=== PATIENT | male | born 1970 | race Caucasian/White ===

== ENCOUNTER → 2018-02-08 09:14 | Outpatient (CLI) | payer MEDICAID, SELFPAY ==
[2018-02-08 09:05] VITALS: BMI 22.9
--- NOTE | 2018-02-08 09:16 | RAD_ITS ---
STUDY: X-RAY - LEFT SHOULDER REASON FOR EXAM: Male, 47 years old. Shoulder pain. TECHNIQUE: 3 view(s) of the shoulder. COMPARISON: None. FINDINGS: Normal glenohumeral articulation. Normal acromioclavicular joint. Normal acromion. Normal humeral head and visualized proximal humerus. The soft tissue structures are unremarkable. Normal visualized pulmonary apex. RAD/Shoulder min 2 Views IMPRESSION: Normal x-ray examination of the shoulder. Electronically Signed: Fabian Siddiqi MD at 17:58 EST , Service support ,
== END ==
PROVIDERS: Family Provider Family Medicine; PCP Family Medicine; Referring Provider Orthopaedic Surgery; Visit Provider Orthopaedic Surgery
DX: M25.512 Pain in left shoulder (principal)
CPT/HCPCS: 73030

== ENCOUNTER 2018-03-18 09:00 | Outpatient (RCR) | payer OTHER, MEDICAID, SELFPAY ==
[2018-02-08 09:05] VITALS: BMI 22.9
--- NOTE | 2018-03-07 11:40 | HP.PTEVAL_ITS ---
Patient's Visit Information MEG VILLAVICENCIO is a 47 year old M referred to Physical Therapy by Sabrina Mcbride DO with a diagnosis of Rotator Cuff tear, subacromial impingment of L shoulder. Date of Evaluation: 02/18/18 Physical Therapist: Celso Devi DPT - Visit Plan Frequency: 1x/Week Duration: 4-6 Weeks Plan: Start with AAROM as tolerated. Add in RTC stability/strengthening exercises as tolerated. Do not push through pain, avoid crepitus movements. - Subjective Findings: Pt. is here today for his initial evaluation with diagnosis of RTC tear and subacromial impingment of L shoulder. Pt. reports having inreased pain for several years, but has become worse recently. 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 Pt. reports haing pain in L shoulder that occassionally radiates into his elbow and even hand. Pt reports increased difficulty with sleeping and performing activities with his L arm. He is R hand dominant. He did recieve an injection of kenalog last week and reports having good relief, but is not all the way better. Pt. denies N/T in either UE. Pt. reports being able to complete most activities, but does have pain with them. Pt. has had an xray that shows normal L shoulder joint. Pt. is hopeful to decrease symptoms to complete all recreational activities without limitations. - Pain L shoulder Pain Intensity (Out of 10): 1 Pain Intensity Range: 1, 8 - Objective POSTURE: Pt. has normal posture in stnace. Pt. does have rounded shoulders bilaterally and FH posture. PALPATION: Pt. has tenderness and subacromial space, more anterior than posterior. Pt. has no scapular pain. He does have deltoid pain, but not to touch. NEURO: all intact without issues. Pt. has n ormal DTR of BLEs. No sign of upper limb tension. ROM: LUE- wrist/elbow normal. Shoulder- flexion 170deg mild increase NW, abduction 170deg mild increase NW, functional ER C4 mild increase nW, functional IR L1 NE.'. MMT: RUE- 5/5 throughout; LUE- wrist 5/5; elbow 5/5; shoulder- flexion 4/5, abd 4/5, ext 4/5, IR 5/5, ext 5/5. - Special Tests L Shoulder Lift Off Test - Subscapular Tear: Negative L Shoulder Drop Sign - IS Test: Negative L Shoulder Empty Can - SS: Negative L Shoulder Neer - Impingement: Positive L Shoulder Murray Margarito - Impingement: Positive L Shoulder Biceps Load Test - Labrum: Negative L Shoulder Yeargasons - SLAP: Negative - Goals Goal 1:: Pt. to be I with HEP. Goal Time Frame: 4-6 Weeks Goal 2:: Pt. to have full ROM of L shoulder without increase in symptoms. Goal Time Frame: 4-6 Weeks Goal 3:: Pt. to have increased strength of L shoulder by 1/2 grade of all effected musculature. Goal Time Frame: 4-6 Weeks Goal 4:: Pt. to have no pain with all recreational and work related activities. Goal Time Frame: 4-6 Weeks - Rehabilitation Potential Physical Therapy Diagnosis: Pt. has signs and symptoms of R subacromial impingem ent. Pt. reports being significantly better after having injection last week. Be does have increased strength or tolerance to movements this date. I plan to attempt to increase strength as tolerated. He does have crepitus in his shoulder with reaching over head, painful with this as well. Pt. would benefit from PT to increase tolerance throughout ROM of L shoulder and to increase strength/stability of his L shoulder. Rehabilitation Potential: Good - Anticipated Interventions Patient/Client Instruction: Educate patient on: Condition, Plan of Care, Risk Factors, Benefits of Fitness Program For the Purpose of:: To foster healthy habits, To improve decision making, To facilitate caregiver knowledge, To improve self management, To prevent re- injury, To improve ability to perform tasks related to life management, To improve tolerance to ADL's Therapeutic Exercise to Include: Strength training, Power training, Endurance training, Postural training, Flexibilty training, Passive ROM, Active ROM, Scapular Strength/Stabilization For the Purpose of:: To decrease pain, To decrease swelling/inflammation, To increase ROM, To improve nutrient delivery to tissue, To increase oxygenation perfusion, To improve muscle performance and motor function, To improve health of tissue, To decrease soft tissue restriction, To increase flexibility/ROM Manual Therapy Techniques to Include: Mobilization, Passive ROM, Functional dry needling, Soft tissue mobilization For the Purpose of:: To decrease pain, To decrease swelling/inflammation, To increase ROM IF ES: Yes Cryotherapy (ice pack, ice massage): Yes Thermo therapy (hot pack): Yes Ultrasound (thermal/non thermal): Yes For the Purpose of:: To decrease pain, To decrease swelling/inflammation, To increase ROM Thank you for the opportunity to evaluate your patient. For Medicare and Medicare HMO plans, please review the plan of care and approve it. It will need to be FAXED BACK to us at [phone] for Medicare purposes. For Medicare only, by signing this I certify the plan of care. Please let me know if there are questions or concerns regarding this plan of care. Physician Signature: Date:
--- NOTE | 2018-03-18 09:18 | HP.PTDCSUM ---
HP - PT D/C Summary It has been my pleasure to treat MEG VILLAVICENCIO under orders from Sabrina Mcbride DO, for the diagnosis of Rotator Cuff tear, subacromial impingment of L shoulder for a total of 4 visit(s). Discharge Date: 03/18/18 Please see the following information for a summary of their discharge status. - Subjective Subjective: Pt. is here today with reports that his symptoms have returned back to where they were prior to injection. Pt. reports driving and doing a full revolution with the steering wheel and having intense pain since. Pt. still reports minimal pain with sleeping, but has increased pain with any attempts of raising his shoulder. - Pain L shoulder Pain Intensity (Out of 10): 4 - Overall Improvement % Improvement: 25 - Objective Objective/Function: AROM: L shoulder- flexion 98deg, abd 78deg, functional ER external auditory meatus, functional IR PSIS on L side. PROM- full without increase in symptoms. MMT: Pt. has 4+/5 throuhgout except, 4-/5 with ER. Pt. has no drop sign, but has increased pain with any active testing of his supraspinatus muscle. Pt. is limited with his ability to complete work duties. Pt. reports have to brace L arm against body for relief. - Goals Goal 1:: Pt. to be I with HEP. Goal Progress: Goal Met Goal 2:: Pt. to have full ROM of L shoulder without increase in symptoms. Goal Progress: Not Progressing Goal 3:: Pt. to have increased strength of L shoulder by 1/2 grade of all effected musculature. Goal Progress: Not Progressing Goal 4:: Pt. to have no pain with all recreational and work related activities. Goal Progress: Not Progressing - Plan Plan: I am recommending patient follow up with physician with possible need for more imaging in order to determine if cuff tear has occured. Pt. cami rodriguez DC to Physician at this point in time. - D/C Information Discharge Comments: Pt. was treated for her RTC tear vs impingment. Pt. had initial good success with his injection, but after ~2.5 weeks symptoms resumed. Pt. was treated with ROM and RTC stability exericses. Pt. is now having increased pain again with ER and all attempts of over head movements. At this point in time I would recommend that the patient return to physician to determine if further imaging is needed. If there are questions or concerns regarding this patient's physical therapy, please feel free to call me at [phone]. Thank you for the referral of this patient. Sincerely, Celso Devi DPT
== END 2018-03-18 19:00 | disposition home or self-care (01) ==
LOC: PT 09:00
PROVIDERS: Family Provider Family Medicine; PCP Family Medicine; Referring Provider Orthopaedic Surgery; Visit Provider Orthopaedic Surgery
DX: M75.102 Unspecified rotator cuff tear or rupture of left shoulder, not specified as traumatic (principal); M25.812 Other specified joint disorders, left shoulder
CPT/HCPCS: 97110; 97161; 97530

== ENCOUNTER → 2018-04-03 06:23 | Outpatient (CLI) | payer OTHER, MEDICAID, SELFPAY ==
[2018-03-19 10:22] VITALS: BMI 22.9
--- NOTE | 2018-04-03 06:15 | RAD_ITS ---
HISTORY: mri clearance COMPARISON: None FINDINGS: XR Orbits Clearance FB: 2 views of the orbits obtained. No radiopaque foreign body. Left maxillary sinus circumferential mucosal thickening. Radiopaque dental device. RAD/Orbits for Foreign Body IMPRESSION: 1. No orbital foreign body. 2. Radiopaque dental device. 3. Left maxillary sinusitis. at 0718 Reported and signed by: Alfred Eldridge MD Electronically Signed: Alfred Eldridge, at 7:17 EST Tel , Service support ,
--- NOTE | 2018-04-03 06:26 | MRI_ITS ---
STUDY: MRI LEFT SHOULDER REASON FOR EXAM: Left shoulder pain for 4-6 months, no specific injury. TECHNIQUE: Standardized fat and water weighted pulse sequences were obtained in all 3 orthogonal planes. COMPARISON: Radiographs 02/08/2018. FINDINGS: There is supraspinatus tendinosis and a full-thickness tear of the distal supraspinatus tendon (T2 coronal images 9-12; T2 axial image 7) measuring 0.5 x 1.2 cm (length x width). Normal infraspinatus tendon. Normal subscapularis tendon. Normal teres minor tendon. Normal supraspinatus muscle. Normal infraspinatus muscle. Normal subscapularis muscle. Normal teres minor muscle. Normal glenohumeral articulation. Normal humeral head and visualized proximal humerus. Normal biceps labral complex. Normal intracapsular long biceps tendon. Normal labrum. Normal capsulo- ligamentous complex. Normal rotator interval. Normal acromioclavicular articulation. There is an os acromiale (T2 axial image 4). There is a Type II morphology (curved), with a posterior downsloping orientation. There is no subacromial-subdeltoid bursal fluid. There is mild thickening of the coracoacromial ligament (T2 sagittal image 15). Normal deltoid muscle. Normal trapezius muscle. MRI/Upper Ext Joint Only(Routine) IMPRESSION: Full-thickness tear and tendinosis of the supraspinatus tendon. Os acromiale. Mild thickening of the coracoacromial ligament. Electronically Signed: Stephen Fam MD at 10:17 EST Tel , Service support ,
== END ==
PROVIDERS: Family Provider Internal Medicine; PCP Internal Medicine; Referring Provider Orthopaedic Surgery; Visit Provider Orthopaedic Surgery
DX: M75.102 Unspecified rotator cuff tear or rupture of left shoulder, not specified as traumatic (principal)
CPT/HCPCS: 70030; 73221

== ENCOUNTER 2018-04-16 08:20 | Day surgery (SDC) | payer MEDICAID, SELFPAY ==
[2018-04-11 08:13] VITALS: BMI 22.9
--- NOTE | 2018-04-15 13:55 | EKG12_ITS ---
Test Reason : PRE-OP Blood Pressure : / mmHG Vent. Rate : 074 BPM Atrial Rate : 074 BPM P-R Int : 124 ms QRS Dur : 082 ms QT Int : 368 ms P-R-T Axes : 015 034 047 degrees QTc Int : 408 ms Normal sinus rhythm Normal ECG Confirmed by ALDO PARRA, PATRIC ([id number]), food expeditor ROSETTA VILLAVICENCIO ([id number]) on 04/16/2018 12:56:54 PM Referred By: Narinder Harry Confirmed By:PATRIC CARLSON MD
[2018-04-15 15:43] LABS: Hematocrit 46.8 % (40-54); Hemoglobin 15.6 g/dl (13.0-16.5); Mean Corp Hgb Conc 33.3 g/gl (32-36); Mean Corpuscular Volume 98.9 fL (80-94); Mean Platelet Vol. 10.8 fl (6.2-12.0); Platelet Count 344 K/mm3 (150-450); RBC Distribution Width CV 13.8 % (11.6-14.6); RBC Distribution Width SD 49.6 fl (35.1-43.9); Red Blood Count 4.73 M/mm3 (4.6-6.2)
[2018-04-15 15:52] LABS: Scan Indicated on CBC? Y/N NO
[2018-04-15 16:07] LABS: AST(SGOT) 38 U/L (15-37); Alanine Aminotransfer ALT/SGPT 33 U/L (16-61); Albumin, Serum 4.1 g/dL (3.2-5.0); Alkaline Phosphatase 56 U/L (45-117); Anion Gap 10 (5-15); BUN 8 mg/dL (7-18); BUN/Creat Ratio 9.1 RATIO (10-20); Bilirubin, Direct 0.07 mg/dL (0.00-0.30); Calcium,Total 8.9 mg/dL (8.5-10.1); Chloride 104 mmol/L (98-107); Creatinine, Serum 0.88 mg/dL (0.70-1.30); EST Glomerular Filtration Rate 98 mL/min (>60); Est Glom Filt Rate - Afr Amer 118 mL/min (>60); Globulin 3.7 g/dL (2.2-4.2); Glucose 80 mg/dL (74-106); Protein, Total 7.8 g/dL (6.4-8.2); Sodium Level 140 mmol/L (136-145)
[2018-04-15 16:09] LABS: Partial Thromboplast Time 28.1 Seconds (24.1-36.2)
[2018-04-16] VITALS (8 sets, daily range): BP systolic 108–132; BP diastolic 75–88; PULSE 49–88; RESP 16–18; TEMP 35.7–36.9; O2SAT 95–97; BMI 21.7
[2018-04-16] MEDS: Cefazolin 2 GM in 0.9% Normal Saline 100 ML IV (10:40)
[2018-04-16] MEDS: Bupiv/Epi 0.5% Mpf 30 ML Vial (11:18)
[2018-04-16] MEDS: Bupivacaine Mpf 0.5% 30 ML VIAL (12:14)
--- NOTE | 2018-04-16 12:26 | PCM.DC.ORTHO ---
Discharge Activity: - - Leave the dressing on and intact for 48 hours. Then may remove and shower with warm water and antibacterial soap. But do not submerge in tub for 3 weeks. May remove sling for elbow range of motion and pendulum exercises only then put sling back on. No active shoulder range of motion. Do not lift push or pull at all with operative extremity. Encourage finger and wrist range of motion. If any concerns call Dr. Harry's office. Call your doctor if you observe: Shortness of breath, Chest pain Allergies/Adverse Reactions: Allergies No Known Allergies Allergy (Verified 04/16/18 08:38) Medications to take at Discharge NK 03/19/18 Orders to be completed after discharge: 12 Lead EKG [CVS] Time Frame: 04/15/18, Facility: [facility], Location: Cardiovascular Services Partial Thromboplast Time Time Frame: 04/15/18, Location: Laboratory Basic Metabolic Profile (BMP) Time Frame: 04/15/18, Location: Laboratory CBC-Complete Blood Cnt No Diff Time Frame: 04/15/18, Location: Laboratory Liver Profile Time Frame: 04/15/18, Location: Laboratory Prothrombin Time w/INR Time Frame: 04/15/18, Location: Laboratory Primary Care Physician: Vlad Martin MD [Primary Care Provider] - Test Results: Test results from this visit will be discussed in further detail at your follow-up appointment, if applicable. Please Follow Up With: Narinder Harry DO - 2 weeks
--- NOTE | 2018-04-16 12:31 | DCINST_ITS ---
Discharge Activity: - - Leave the dressing on and intact for 48 hours. Then may remove and shower with warm water and antibacterial soap. But do not submerge in tub for 3 weeks. May remove sling for elbow range of motion and pendulum exercises only then put sling back on. No active shoulder range of motion. Do not lift push or pull at all with operative extremity. Encourage finger and wrist range of motion. If any concerns call Dr. Harry's office. Call your doctor if you observe: Shortness of breath, Chest pain Allergies/Adverse Reactions: Allergies No Known Allergies Allergy (Verified 04/16/18 08:38) Medications to take at Discharge NK 03/19/18 Orders to be completed after discharge: 12 Lead EKG [CVS] Time Frame: 04/15/18, Facility: [facility], Location: Cardiovascular Services Partial Thromboplast Time Time Frame: 04/15/18, Location: Laboratory Basic Metabolic Profile (BMP) Time Frame: 04/15/18, Location: Laboratory CBC-Complete Blood Cnt No Diff Time Frame: 04/15/18, Location: Laboratory Liver Profile Time Frame: 04/15/18, Location: Laboratory Prothrombin Time w/INR Time Frame: 04/15/18, Location: Laboratory Primary Care Physician: Vlad Martin MD [Primary Care Provider] - Test Results: Test results from this visit will be discussed in further detail at your follow- up appointment, if applicable. Please Follow Up With: Narinder Harry DO - 2 weeks
--- NOTE | 2018-04-16 12:47 | OP.PCM_ITS ---
Report of Operation Date of Procedure: 04/16/18 Description of Surgical Findings:: Preoperative diagnosis: Left rotator cuff tear supraspinatus Postoperative diagnosis: Full-thickness supraspinatus and infraspinatus rotator cuff tear Procedure: Arthroscopic rotator cuff repair Implants: Arthrex the bridge 4 anchor pair Anesthesia: General with interscalane block EBL: 25 cc Complications none Indication for procedure: This is a 47-year-old male patient has had ongoing weakness and shoulder pain in his left shoulder he was treated conservatively as there was no initial injury however he failed conservative treatment did have an MRI with evidence of full-thickness supraspinatus rotator cuff tear just immed iately prior to surgery patient had a fall and had increased pain and inability to lift the arm after this fall he made this aware to me just immediate [place] preoperatively in the holding area. Risks benefits and alternatives of the procedure were reviewed including risk of bleeding infection nerve artery tissue damage need for further surgery continued pain postoperative stiffness and need for postoperative physical therapy and continued pain. Procedure: Patient was met in the preoperative holding area the operative extremity was identified by both the patient and the physician and was marked. Patient was met by anesthesia and brought back to the operating room on a wheeled cart. Patient was transferred to the operating table in the supine position. Anesthesia was started. Patient was then positioned in the beach chair configuration. Bony prominences were well-padded. The patient was prepped and draped in the usual sterile fashion. A timeout was called to ensure the proper patient procedure and extremity were being contemplated. Anatomic landmarks were palpated and marked with a marking pen. A 0.25% Marcaine with epinephrine was injected into the planned portal sites. An 11 blade scalpel was used to make a stab incision in the posterior lateral portal. Arthroscope was inserted into the glenohumeral space with ease. Inflow and outflow tubes were attached and arthroscopic visualization began. An anterior portal was established with an 18-gauge spinal needle. There was no significant cartilage pathology there was slight fraying of the superior border of the subscapularis mild synovitis of the biceps tendon. the rotator cuff was evaluated and was found to have a full-thickness tear of both supraspinatus and the infraspinatus. The axillary pouch was investigated and was free of loose bodies. The subscapularis was intact. The arthroscope was then repositioned into the subacromial space and a lateral portal was established. A subacromial decompression with an ArthroCare wand and shaver was performed. There was noted to be anterior spurring of the acromion which was burred to create a flat surface. Performing an anterior acromioplasty. The bursal side of the rotator cuff was evaluated . Using standard speed bridge fashion 2 medial anchors were placed wedges of the fiber tapes were cut and for individual passes of the rotator cuff were performed then in standard fashion the posterior limb of each of these anchors were secured to a posterior lateral anchor and were tapped into place under tension this was repeated for the anterior 2 limbs. Excellent repair was achieved. The wound was thoroughly irrigated through the scope followed by a subacromial injection with 4 mg of morphine and 8 cc of 0.5% Marcaine plain. Suture portals were closed with 3-0 nylon arthroscopic stitches followed by Xeroform 4 x 4 ABD and a Ioban dressing. A abduction sling and pillow was placed. Anesthesia was reversed and patient tolerated the procedure well was and was transferred to the PACU all counts were correct patient will follow-up in the office in 2 weeks . Patient may begin active elbow and wrist range of motion and pendulums of the shoulder but no active shoulder motion, dressing is to be left on for 48 hours before being changed daily after showering Type of Anesthesia:: Block,Regional - Interscalene
--- NOTE | 2018-04-16 12:54 | EKG12_ITS ---
Test Reason : Blood Pressure : / mmHG Vent. Rate : 054 BPM Atrial Rate : 054 BPM P-R Int : 124 ms QRS Dur : 080 ms QT Int : 452 ms P-R-T Axes : 048 025 043 degrees QTc Int : 428 ms Sinus bradycardia Septal infarct , age undetermined Possible early repolarization abnormality vs ischemia Abnormal ECG When compared with ECG of 15-APR-2018 14:02, No significant change was found Confirmed by FANNY LOZANO ([id number]), editor newspaper ROSETTA VILLAVICENCIO ([id number]) on 04/19/2018 1:41:22 PM Referred By: Narinder Harry Confirmed By:FANNY LOZANO
== END 2018-04-16 14:45 | disposition home or self-care (01) ==
LOC: SDC 08:22 → AC 08:23
PROVIDERS: Family Provider Internal Medicine; PCP Internal Medicine; Referring Provider Orthopaedic Surgery; Visit Provider Orthopaedic Surgery
PROC: (CPT 29827; principal; 2018-04-16 09:45)
DX: M75.122 Complete rotator cuff tear or rupture of left shoulder, not specified as traumatic (principal); F17.200 Nicotine dependence, unspecified, uncomplicated
CPT/HCPCS: 29827; 64415; 36415; 80048; 80076; 85027; 85610; 85730; 93005; J7120; J2405

== ENCOUNTER 2018-06-17 09:00 | Outpatient (RCR) | payer MEDICAID, SELFPAY ==
[2018-04-16 08:40] VITALS: BMI 21.7
--- NOTE | 2018-04-29 11:42 | HP.PTEVAL_ITS ---
Patient's Visit Information MEG VILLAVICENCIO is a 47 year old M referred to Physical Therapy by Narinder Harry DO with a diagnosis of L rotator cuff repair. Date of Evaluation: 04/29/18 Physical Therapist: Celso Devi DPT - Visit Plan Frequency: 2-3x /Week Duration: 4 Weeks Plan: Start with Phase I shoulder program x4 weeks, progress to AAROM at 6 weeks post OP. May use ice/IFC for pain control. - Subjective Findings: Pt. is here for his initial evaluation with diagnosis of L RTC repair. Pt. had a tear of subscapularis and infraspinatus. DOS on 04/16/18. Pt. reports he is no longer taking pain medications, other than OTC pain meds. Pt. denies N/T. Pt. has been dpoing pendulums and elbow flexion at home. Pt. is having dificulty sleeping as expected,but is no doing better sleeping semi reclined in bed. 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 Pt. saw physician this morning and is now ready to start PT. Pt. is hopeful to increase full use of L UE in order to get back to all recreational and work activities without limitations. - Pain L shoulder Pain Intensity (Out of 10): 1 - Objective POSTURE: Pt. had arm in sling with pilow. Pt. has arm in guarded posture with sling removedw ith increased scapular protraction and forward shoulder. PALPATION: pt. has well healing port hole incisions. Skin slight irritated (light redness), but just had stiches removed ~1 hour ago. No signs of infection. NEURO: all normal intact. Normal sensation. ROM: R shoulder/elbow full without issues. LUE- wrist and elbow- full active no pain. L shoulder- PROM- flexion 92deg, abd 78deg, ER at side 15deg. Pt. had empty end feel with slight increase in symptoms as limiting factor. Increase no worse symptoms. MMT: RUE- 5/5 throughout. LUE- wrist 5/5, elbow atleast 3/5 did not test with over pressure due to surgery. DNT shoulder strength due to surgery. - Goals Goal 1:: Pt. to be I with HEP. Goal Time Frame: 4-6 Weeks Goal 2:: Pt. to have full PROM of L shoulder withuot increase in symptoms. Goal Time Frame: 4-6 Weeks Goal 3:: Pt. to have full AROM of L shoulder allowing for increased functional use of LUE. Goal Time Frame: 6-8 Weeks Goal 4:: Pt. to sleep throughout the night without increase in symptoms allowing for increased quality of life. Goal Time Frame: 4-6 Weeks Goal 5:: Pt. to have increased L shoulder strength to 4/5 allowing increased ability to complete ADLs and work activities. Goal Time Frame: 8-12 Weeks - Rehabilitation Potential Physical Therapy Diagnosis: Pt. has signs and symptoms consisent with L RTC repair, DOS 04/16/18. Pt. has subsequent hypomobility, weakness and increased pain. Pt. would benefit from PT address above limitations progressing back to work/recreational activities as allowed by physician. Rehabilitation Potential: Excellent - Anticipated Interventions Patient/Client Instruction: Educate patient on: Condition, Plan of Care, Risk Factors, Benefits of Fitness Program For the Purpose of:: To improve decision making, To facilitate caregiver knowledge, To improve self management, To prevent re-injury, To improve ability to perform tasks related to life management, To improve tolerance to ADL's Therapeutic Exercise to Include: Strength training, Power training, Endurance training, Postural training, Flexibilty training, Passive ROM, Active ROM, Scapular Strength/Stabilization For the Purpose of:: To decrease pain, To decrease swelling/inflammation, To increase ROM, To increase oxygenation perfusion, To improve muscle performance and motor function, To improve ability to perform ADL's, To increase tolerance to activity/condition/position, To improve performance and independence with ADL's, To improve ability of physical actions for home/community/work/leisure, To improve health of tissue, To decrease soft tissue restriction, To increase flexibility/ROM Manual Therapy Techniques to Include: Mobilization, Passive ROM, Soft tissue mobilization For the Purpose of:: To decrease pain, To increase ROM TENS: Yes IF ES: Yes Cryotherapy (ice pack, ice massage): Yes Thermo therapy (hot pack): Yes For the Purpose of:: To decrease pain, To decrease swelling/inflammation, To increase ROM Thank you for the opportunity to evaluate your patient. For Medicare and Medicare HMO plans, please review the plan of care and approve it. It will need to be FAXED BACK to us at [phone] for Medicare purposes. For Medicare only, by signing this I certify the plan of care. Please let me know if there are questions or concerns regarding this plan of care. Physician Signature: Date:
--- NOTE | 2018-10-21 08:48 | HP.PT.NRP ---
HP - Discharge Summary (1) - Patient Information MEG VILLAVICENCIO was seen in my office for initial evaluation on 04/29/18. The following Plan of Care was established for this patient: Initial Frequency: 2-3x /Week Initial Duration: 4 Weeks - Anticipated Interventions Patient/Client Instruction: Educate patient on: Condition, Plan of Care, Risk Factors, Benefits of Fitness Program For the Purpose of:: To improve decision making, To facilitate caregiver knowledge, To improve self management, To prevent re-injury, To improve ability to perform tasks related to life management, To improve tolerance to ADL's Therapeutic Exercise to Include: Strength training, Power training, Endurance training, Postural training, Flexibilty training, Passive ROM, Active ROM, Scapular Strength/Stabilization For the Purpose of:: To decrease pain, To decrease swelling/inflammation, To increase ROM, To increase oxygenation perfusion, To improve muscle performance and motor function, To improve ability to perform ADL's, To increase tolerance to activity/condition/position, To improve performance and independence with ADL's, To improve ability of physical actions for home/community/work/leisure, To improve health of tissue, To decrease soft tissue restriction, To increase flexibility/ROM Manual Therapy Techniques to Include: Mobilization, Passive ROM, Soft tissue mobilization For the Purpose of:: To decrease pain, To increase ROM TENS: Yes IF ES: Yes Cryotherapy (ice pack, ice massage): Yes Thermo therapy (hot pack): Yes For the Purpose of:: To decrease pain, To decrease swelling/inflammation, To increase ROM This patient was last seen in our office 06/17/18. Pertinent comments regarding their Physical therapy will appear below: Pt. was treated for her RTC repair. Pt. was doing well and had resumed work activities. He was progressing with phase III, but did not attend is last few visits of PT and has not been seen in several months. Pt. will be DC from PT at this point intime. At this point I will be discontinuing this patient from physical therapy. I would be happy to see this patient again in the future if found appropriate by the physician. Thank you! Celso Devi, LUPIST
== END 2018-06-17 19:00 | disposition home or self-care (01) ==
LOC: PT 09:00
PROVIDERS: Family Provider Internal Medicine; PCP Internal Medicine; Referring Provider Orthopaedic Surgery; Visit Provider Orthopaedic Surgery
DX: Z98.890 Other specified postprocedural states (principal); Z47.89 Encounter for other orthopedic aftercare
CPT/HCPCS: 97110; 97140; 97161

== ENCOUNTER → 2020-01-19 07:10 | Outpatient (CLI) | payer MEDICAID, SELFPAY ==
[2018-07-17 07:56] VITALS: BMI 21.7
--- NOTE | 2020-01-19 07:12 | MRI_ITS ---
STUDY: MRI RIGHT SHOULDER REASON FOR EXAM: Right shoulder pain for 2-3 months, no specific injury. TECHNIQUE: Standardized fat and water weighted pulse sequences were obtained in all 3 orthogonal planes. COMPARISON: Radiographs 01/06/2020. FINDINGS: There is mild supraspinatus tendinosis and a small low-grade partial-thickness tear of the articular surface of the distal supraspinatus tendon (T2 coronal images 11-13) measuring approximately 0.6 x 1.0 cm (length x width). Normal infraspinatus tendon. There is mild subscapularis tendinosis (T2 axial images 12-14) without discrete tendon tear. Normal teres minor tendon. Normal supraspinatus muscle. There is a small cyst at the infraspinatus musculotendinous junction (T2 coronal image 5). Normal subscapularis muscle. Normal teres minor muscle. Normal glenohumeral articulation. There is slight bone edema in the greater tuberosity. Normal biceps labral complex. Normal intracapsular long biceps tendon. Normal labrum. Normal capsulo- ligamentous complex. Normal acromioclavicular articulation. There is an os acromiale (T2 axial image 4). There is a Type II morphology (curved), with a neutral orientation. There is a very small volume of subacromial-subdeltoid bursal fluid (T2 coronal images 6-14). Normal visualized coracohumeral and coracoacromial ligaments. Normal deltoid muscle. Normal trapezius muscle. MRI/Upper Ext Joint Only(Routine) IMPRESSION: Small low-grade partial-thickness tear and mild tendinosis of the supraspinatus tendon. Mild subscapularis tendinosis. Very mild subacromial-subdeltoid bursitis. Os acromiale. Electronically Signed: Stephen Fam MD at 8:28 EST Tel , Service support ,
== END ==
PROVIDERS: PCP Nurse Practitioner Family; Referring Provider Physician Assistant; Visit Provider Physician Assistant
DX: M25.511 Pain in right shoulder (principal); M25.611 Stiffness of right shoulder, not elsewhere classified
CPT/HCPCS: 73221

== ENCOUNTER 2020-03-17 05:58 | Day surgery (SDC) | payer MEDICAID, SELFPAY ==
[2020-03-04 09:38] VITALS: BMI 22.0
--- NOTE | 2020-03-11 08:29 | EKG12_ITS ---
Test Reason : PRE OP Blood Pressure : / mmHG Vent. Rate : 082 BPM Atrial Rate : 082 BPM P-R Int : 124 ms QRS Dur : 082 ms QT Int : 370 ms P-R-T Axes : 040 046 060 degrees QTc Int : 432 ms Normal sinus rhythm Normal ECG Confirmed by DASH PARRA, RONNY ([id number]), communications editor KARINA DEGROOT ([id number]) on 03/15/2020 11:21:35 AM Referred By: Sabrina Mcbride Confirmed By:NEIL BOWLING MD
[2020-03-11 09:11] LABS: Hematocrit 42.7 % (40-54); Hemoglobin 14.6 g/dL (13.0-16.5); Mean Corp Hgb Conc 34.2 g/dL (32-36); Mean Corpuscular Volume 99.3 fL (80-94); Mean Platelet Vol. 10.1 fl (6.2-12.0); Platelet Count 334 K/mm3 (150-450); RBC Distribution Width CV 13.4 % (11.6-14.6); RBC Distribution Width SD 49.1 fl (35.1-43.9); White Blood Count 9.4 K/mm3 (4.4-11.0)
[2020-03-11 09:20] LABS: Prothrombin Time (Protime)PT. 12.3 SECONDS (11.7-14.9)
[2020-03-11 09:33] LABS: AST(SGOT) 35 U/L (15-37); Alanine Aminotransfer ALT/SGPT 29 U/L (16-61); Albumin, Serum 3.7 g/dL (3.2-5.0); Alkaline Phosphatase 51 U/L (45-117); Anion Gap 4 (5-15); BUN 7 mg/dL (7-18); BUN/Creat Ratio 7.5 RATIO (10-20); Bilirubin, Direct 0.14 mg/dL (0.00-0.30); Calcium,Total 8.6 mg/dL (8.5-10.1); Chloride 106 mmol/L (98-107); Creatinine, Serum 0.93 mg/dL (0.70-1.30); EST Glomerular Filtration Rate 91 mL/min (>60); Est Glom Filt Rate - Afr Amer 110 mL/min (>60); Globulin 3.6 g/dL (2.2-4.2); Glucose 113 mg/dL (74-106); Potassium 4.3 mmol/L (3.5-5.1); Protein, Total 7.3 g/dL (6.4-8.2); Sodium Level 138 mmol/L (136-145)
[2020-03-17] VITALS (9 sets, daily range): BP systolic 108–134; BP diastolic 70–98; PULSE 62–81; RESP 16–18; TEMP 36.2–36.7; O2SAT 91–95; BMI 22.5
--- NOTE | 2020-03-17 | TESH_PTH ---
PATIENT: MEG VILLAVICENCIO [place] [facility] [id number] AGE/SX: 49/M ROOM: RE03/17/[address]: Dr. Sabrina Mcbride DO : 1970 BED: DIS: 03/17/2020 SPEC #: [id number] RECD: 03/17/20 11:18 STATUS: NASIR KIN #: [id number] ELIS: 03/17/20 00:[address]: Sabrina Mcbride DEPT: SURGICAL PATHOLOGY RECD BY: Mohinder Montero ENTERED: 03/17/20 11:18 SP TYPE: TENDON OTHR DR: No Primary Care Phys Tissues: Tendon and tendon sheath, NOS Procedures: Surgery Specimen Level III HEADER OPERATION: Arthroscopy, shoulder, rotator cuff repair, subacromial decompression PRE-OP DIAGNOSIS: Rotator cuff tear and biceps tendonitis right shoulder TISSUE SUBMITTED: Right biceps tendon MICROSCOPIC DIAGNOSIS Right biceps tendon, biopsy: Tendinous tissue with focal reparative change. AM:mira 03/18/2020 MICROSCOPIC DESCRIPTION Slides are reviewed. GROSS DESCRIPTION Received in fixative is one container labeled with the patient's name and designated right biceps tendon. The specimen consists of an elongated fragment of glistening, white-preston soft tissue measuring 5.5 cm in length and 0.8 cm in diameter. The specimen is sectioned and submitted in its entirety in one cassette. / AM:mira 03/17/20 TC:5 CPT: 94476
[2020-03-17] MEDS: Lactated Ringers 1,000 ML 100 ML IV ×2 (06:45→12:04)
--- NOTE | 2020-03-17 06:52 | HP_ITS ---
I have re-examined the patient. There are no clinical changes since date of exam. Intake Vital Signs 03/04/20 Height 5 ft 8 in 03/04/20 Weight: 145 lb Intake Visit Reasons: right shoulder Is patient in pain?: Yes Allergies No Known Allergies Allergy (Verified 03/04/20 09:38) Medications NK 03/04/20 [History Confirmed 03/04/20] PENDING SALE TO [facility] Surgical History History of arthroscopic knee surgery (Acute) History of carpal tunnel release (Acute) History of ear surgery (Acute) History of hernia repair (Acute) History of rhinoplasty (Acute) Family History (Updated 01/22/18 @ 16:41 by Dina Betancourt) Aunt Myocardial infarction Grandmother Myocardial infarction Mother CVA (cerebral vascular accident) Sister Hypertension Father Cancer testicular Hypertension Hyperlipemia Social History (Updated 03/04/20 @ 11:[address] Sabrina Mcbride, DO) Smoking Status: Heavy Smoker (>10/day) Tobacco: How many years used: 30 alcohol intake: current alcohol intake frequency: 3 or more drinks per day Alcohol type: beer substance use type: does not use what type of physical activity do you participate in: other details: active lifestyle do you feel safe at home: Yes HPI right shoulder: Surgical H&P: Yes Details: Parts of this documentation were recorded by a scribe, this documentation accurately reflects the service provided and the decisions made by me, Dr. Sabrina Mcbride, 03/04/20 0932. MEG VILLAVICENCIO is a 49 year old M here today for continued right shoulder pain. Patient notes that he states that his pain is worsening. Patient had a steroid injection on 01/26/20 which was helpful for about 2 weeks. He has been doing a home exercise program which is not helpful. Patient complains of pain over his anterior and lateral upper arm. He has good range of motion although it is painful. He has tightness of his shoulder. Patient is taking aspirin for pain. Denies numbness, tingling or other associated symptoms. Patient had an MRI which is here for review. ROS Musc Reports joint pain, Reports limited joint movement, Denies numbness, Reports stiffness, Denies tingling Skin/Breast Reports system reviewed and no additional complaints, except as docu Neuro Yes system reviewed and no additional complaints, except as docu, No numbness, No tingling Ortho Exam Right Shoulder Skin/Wound: Yes CDI, No ecchymosis, No erythema Testing: Positive Hawkin's, Speed's, TTP Biceps, Yergason's, AROM-Forward Elevation 0-180, AROM-External Rotation at 90 0-60, AROM-External Rotation at side 0-60, PROM-External Rotation at side 0-60, PROM-External Rotation at 90 0- 60 and PROM-Forward Elevation 0-180 Assessment & Plan Problems 1. Rotator cuff tear, right M75.101 2. Biceps tendinitis on right M75.21 Plan Personally reviewed the patients right shoulder MRI which showed Small low-grade partial-thickness tear and mild tendinosis of the supraspinatus tendon, Mild subscapularis tendinosis, mild subacromial-subdeltoid bursitis. See imaging report in chart. Educated the patient about the anatomy of the shoulder and etiology of his pain. Spoke with him about surgery as he has failed conservative treatment. Explained the difference between biceps tendinosis vs tenotomy. He needs to stop taking aspirin for shoulder surgery, as well as nsaids. Reviewed the pre-operative plans with the patient. Risks and benefits of the procedure were fully explained, including but not limited to infection, neurovascular injury, continued pain, arthritis, stiffness, need for further surgery, re-injury, DVT, PE, general risks of anesthesia, and loss of limb or life. The patient understands all the risks and does wish to proceed with written consent. Follow up for 2 week post op or sooner if pain, swelling, numbness or associated symptoms, or concerns develop. All questions answered. Patient in agreement of plan. Discussed with patient preoperatively again. Patient stated that if he does rotator cuff repair we perform an open biceps tenodesis if we did a decompression/acromioplasty we would do a biceps tenotomy if indicated- patient is aware and would like to proceed as aforementioned. Coding Level of Care Code Off vis,est,level 4 Diagnoses Rotator cuff tear, right M75.101 ??Encounter type: subsequent encounter Biceps tendinitis on right M75.21 COVID (Procedure Consent) Procedure Criteria Procedure Criteria: Yes Elective The surgeon/proceduralist and patient have discussed in detail the risk of exposure to and/or potential harm posed by the COVID-19 virus with having a surgery/procedure at this time versus the risk of? delaying the surgery/procedure. It is not possible to know either the risk of delaying the surgery or procedure or chance of getting an infection with perfect accuracy, but a joint decision was made between the patient and the surgeon/proceduralist ?to proceed at this time with the scheduled surgery/procedure as indicated on the consent form.
[2020-03-17] MEDS: Bupiv/Epi 0.25% 30 ML Vial (07:04)
[2020-03-17] MEDS: Cefazolin 2 GM in 0.9% Normal Saline 100 ML IV (07:30)
--- NOTE | 2020-03-17 07:39 | DCINST_ITS ---
Discharge Diet: No Restrictions - keep incision clean, dry, and intact, may remove dressing and place bandaids to incision post op day 5, may get incision wet at that time, call with concerns- may uise wrist/hand as tolerated, right arm sling at all times unless doing pendulums every couple of hours, sling to bed as well Discharge Activity: May Not Drive May shower in (days): 1 Ice area for (Minutes): 20 - Every hour while awake. Weight Bearing Status: Weight bearing as tolerated Keep extremity elevated above heart level: Operative Extremity Call your doctor if your incision/area has: Continuous Slow Oozing, Sudden Increased Bleeding, Increased Pain/ Swelling, Increased Redness, Foul Smelling Discharge Call your doctor if you observe: Fever of 101 or Higher, Coldness, Increased Pain, Numbness or Tingling, Change in Color, Calf discomfort Allergies/Adverse Reactions: Allergies No Known Allergies Allergy (Verified 03/09/20 09:57) Medications to take at Discharge Oxycodone HCl/Acetaminophen [Percocet 5/325] 1 - 2 tab PO Q6H PRN PRN 5 Days #28 tab 03/17/20 Zolpidem Tartrate [Ambien (Generic)] 5 mg PO QHS PRN PRN #14 tab 03/17/20 The following prescriptions were given: Zolpidem Tartrate [Ambien (Generic)] 5 mg PO QHS PRN PRN #14 tab PRN Reason: Insomnia Transmission Status: Received by [facility] Oxycodone HCl/Acetaminophen [Percocet 5/325] 1 - 2 tab PO Q6H PRN PRN 5 Days #28 tab PRN Reason: Pain Transmission Status: Received by [facility] Primary Care Physician: Care Physician,No Primary [Primary Care Provider] - Test Results: Test results from this visit will be discussed in further detail at your follow- up appointment, if applicable. Please Follow Up With: Sabrina Mcbride, DO - [phone]
--- NOTE | 2020-03-17 07:40 | PCM.OPRPT ---
Report of Operation Date of Procedure: 03/17/20 Pre-Operative Diagnosis: rigth shoulder rotator cuff tear, biceps/labral degeneration, subacromial impingment syndrome/bursitis Post-Operative Diagnosis: same Surgery/Procedure Performed:: sars, rotator cuff repair, sad/acromioplasty, open biceps subpec tenodesis bridge opener: Alfred Duffy Type of Anesthesia:: General/Regional Anesthesiologist: Doyle Fabian Specimen's removed: biceps tendon Estimated Blood Loss (mL): min Fluids Replaced: 1500cc lr Description of Procedure: Preop note Patient is a 49-year-old male with continued right shoulder pain pain overhead and weakness. MRI confirms rotator cuff tear biceps labral degenerative tearing versus SLAP tearing and some biceps tendinosis and impingement syndrome. Patient failed conservative treatment options and elected proceed with right shoulder arthroscopy para Zincate. Risk benefits alternatives surgery discussed with patient. Risk include but not limited to blood loss, blood clot, infection, neurovascular drain, failure procedure, loss of life and loss of limb. Patient is aware of electricity with right shoulder arthroscopy repair as indicated. Geneva Casillas We discussed the current risk associated COVID-19. While it is understood that there is a community spread of COVID 19 the risk of stephon COVID-19 while at [facility] is very low, however, the risk cannot be completely mitigated because of the community spread of the disease. We discussed in detail the risk of exposure to and or potential harm posed by the COVID-19 virus with having a surgery/procedure at this time versus the risk of delaying the surgery/procedure. Is not possible to know either the risk of delaying the surgery procedure or chance of getting an infection with perfect accuracy, but a joint decision was made to proceed at this time with a schedule surgery/procedure as indicated on the consent form. Patient was notified that we will need to comply with any screening or testing [facility] wishes to perform or that surgery may be delayed for any positive results. Operative note Patient seen and examined preoperative holding area. Right shoulder was marked. Patient is brought to the operating placed supine on the operating table. Signed, anesthesia, antibiotics were administered. Patient was placed in beachchair positioning [facility] through we did recheck his blood pressure which was stable throughout. All bony promises well-padded SCDs placed on his bilateral lower extremity. The right arm was prepped and draped in usual sterile technique. Marked out our bony landmarks for portal placement. Insufflated glenohumeral joint for the posterior aspect. Timeout was performed. Began our diagnostic arthroscopy after creating a posterior portal with 11 blade. The glenohumeral joint was intact. We created an anterior portal under direct visualization. He had an unstable biceps labral tear which we then inserted a basket and resected back the biceps and then used a shaver to debride back the labrum to stable labrum. The glenohumeral joint was intact there were no inferior recess loose bodies. The rotator cuff was a full-thickness rotator cuff supraspinatus extending from the entire footprint and the leading edge of the infraspinatus was also torn off. We then moved to the subacromial space. We performed a acromioplasty we also performed a bursectomy combination of shaver and ablator. We then debrided back the footprint with a bur. We then placed 2 bio composite Arthrex anchors for medial row because there was a split tear of the infraspinatus we did perform to marginal convergence stitches using the more posterior anchor. We then used the anterior anchor and then put tied down and brought the supraspinatus down with a tensionless repair. We then brought the 2 anterior and 2 posterior limbs down to the swivel locks on the for a lateral row. There was still a little bit of an anterior leaflet so we did place our sutures through the anterior and posterior to the sutures that were previously thrown in order to better facilitate coverage of her footprint. We had excellent coverage at that point. We then irrigated the shoulder with copious muscle sterile saline. Moved her open biceps tenodesis. We reprepped the area. With her allotted 3 minutes. We made incision just distal to the pec insertion about 2 cm in length. This is down to the subcutaneous fat and subcutaneous fascia down to the biceps sheath biceps sheath was opened and the biceps tendon that had been previously cut was brought into the incision. And whipstitched the end of the biceps tendon about the stitches through the end of the button in standard technique. We measured and cut the appropriate length and sent the biceps tendon for further evaluation. We then dissected down to the area of the subpec for our placement of our Arthrex pec button. We used a Bovie debride back the periosteum we drilled unicortical he ensuring to protect all neurovascular structures at all times. We drilled unicortical he irrigated the bony debris and then placed our button. We ensured unicortical flip. We then oversewed the tendon to the periosteum. We had a tensionless good repair with good length at that time. We then irrigated the incision with copious muscle sterile saline. Incision was closed with interrupted Vicryl stitches 3 oh and a running 4-0 Monocryl the portals were closed with Vicryl sutures of 3 oh as well. Sterile dressings and a sling was applied to the right upper extremity. Patient tolerated procedure well no complication transfer recovery room in stable condition. Note patient received a preoperative interscalene block. Postoperative Pharmacy has prescriptions Call with increased pain numbness tingling further issues arise Sling at all times unless doing pendulums Follow-up in 5 days with [facility] for dressing change initiation of physical therapy Call with concerns This note was generated with [employer] dictation software. It may contain incorrect words, spelling, and punctuation that were not noted in checking the note before signing.
[2020-03-17] MEDS: Epinephrine (1 mg/ml) 1 MG/ML VIAL (09:16)
[2020-03-17] MEDS: Mupirocin Ointment 22gm Tube 1 APPLIC (09:16)
== END 2020-03-17 13:41 | disposition home or self-care (01) ==
LOC: SDC 05:58 → AC 05:58
PROVIDERS: Anesthesiology; Referring Provider Orthopaedic Surgery; Visit Provider Orthopaedic Surgery
PROC: (CPT 29827; principal; 2020-03-17 07:10)
DX: M75.121 Complete rotator cuff tear or rupture of right shoulder, not specified as traumatic (principal); M75.21 Bicipital tendinitis, right shoulder; M25.811 Other specified joint disorders, right shoulder; F17.200 Nicotine dependence, unspecified, uncomplicated; Z79.82 Long term (current) use of aspirin; Z20.822 Contact with and (suspected) exposure to COVID-19
CPT/HCPCS: 01630; 29826; 29827; 29828; 64415; 76942; 36415; 80048; 80076; 85027; 85610; 85730; 87426; 88304; 93005; C9803; J7120; C1713; J2405

== ENCOUNTER 2020-07-28 07:00 | Outpatient (RCR) | payer MEDICAID, SELFPAY ==
[2020-03-26 11:07] VITALS: BMI 22.0
--- NOTE | 2020-04-07 15:00 | HP.PTEVAL_ITS ---
Patient's Visit Information MEG VILLAVICENCIO is a 49 year old M referred to Physical Therapy by Dr. Sabrina Mcbride DO with a diagnosis of R rot cuff repair with biceps tenodesis. Date of Evaluation: 04/07/20 Physical Therapist: Darin Bennett, PT, ATC - Visit Plan Frequency: 2-3x /Week Duration: 4-6 Weeks Plan: Follow protocal for R shoulder rot cuff repair with biceps tenodesis. Cp as needed for pain. Begin phase I next treatment - Subjective DOS: 03/17/20. Pt had a R rot cuff repair with biceps tenodesis. Pt reports he tore his R rotator cuff after working for [employer] for the past 30 years. Pt notes he had L rot cuff surgery 2 years ago. Pt reports he hasnt missed any work hardly since his surgery. 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 No tingling or numbness in R UE. Pt reports he only had severe pain for 2 days after the surgery, and then the pain eloisa just went away. Pt is R hand dominant. 0/10 pain at rest, 4/10 pain at worst. - Pain R shoulder Pain Intensity (Out of 10): 0 Pain Intensity Range: 4 - Objective Neuro: B UE sensation is WNL to light touch. L bicepital reflex= 2/3. Observation: Incisions healed at this time on shoulder. Bicepital incision still healing. ROM: L shoulder AROM flex= 155, abd= 165, ER= 65, IR WNL; L shoulder PROM flex= 50, abd=35, ER= 0. MMT: L shoulder 5/5 throughout. R shoulder not tested. - Goals Goal 1:: Decrease R shoulder pain x 50% to aid with pt's tolerance to lye supine. Goal Time Frame: 4-6 Weeks Goal 2:: Increase R shoulder flex and abd AROM x 50 degrees to aid with overhead activity Goal Time Frame: 4-6 Weeks Goal 3:: Increase R shoulder strength x 1 grade to aid with RTW without limitation Goal Time Frame: 4-6 Weeks Goal 4:: I with HEP Goal Time Frame: 4-6 Weeks - Rehabilitation Potential Physical Therapy Diagnosis: R shoulder pain, weakness, and limited ROM secondary to R rot cuff repair Rehabilitation Potential: Good - Anticipated Interventions Patient/Client Instruction: Educate patient on: Condition, Plan of Care For the Purpose of:: To improve self management Therapeutic Exercise to Include: Strength training, Endurance training, Flexibilty training, Passive ROM, Active ROM, Scapular Strength/Stabilization For the Purpose of:: To decrease pain, To increase ROM, To improve muscle performance and motor function Cryotherapy (ice pack, ice massage): Yes For the Purpose of:: To decrease pain Thank you for the opportunity to evaluate your patient. For Medicare and Medicare HMO plans, please review the plan of care and approve it. It will need to be FAXED BACK to us at [phone] for Medicare purposes. For Medicare only, by signing this I certify the plan of care. Please let me know if there are questions or concerns regarding this plan of care. Physician Signature: Date:
--- NOTE | 2020-05-07 10:57 | HP.PTREVAL_ITS ---
Dr. Sabrina Mcbride, DO, It has been my pleasure to treat MEG VILLAVICENCIO over the last 9 visits for R rot cuff repair with biceps tenodesis. Please see the progress note below for an update on the physical therapy plan of care! Subjective: I move it more than i should be Objective/Function: R shoulder pain 05/22. R shoulder ROM: flex= 100, abd= 60, ER= 20. Pt is progressing well toward Rx goals Plan Plan: Issued and instructed pt on HEP of phase 2 ex's. Pt to cont with those for 3 weeks and then return for phase 3 strengthening Goals Goal 1:: Decrease R shoulder pain x 50% to aid with pt's tolerance to lye supine. Goal Time Frame: 4-6 Weeks Goal Progress: Progressing Goal 2:: Increase R shoulder flex and abd AROM x 50 degrees to aid with overhead activity Goal Time Frame: 4-6 Weeks Goal Progress: Progressing Goal 3:: Increase R shoulder strength x 1 grade to aid with RTW without li mitation Goal Time Frame: 4-6 Weeks Goal Progress: Progressing Goal 4:: I with HEP Goal Time Frame: 4-6 Weeks Goal Progress: Progressing Anticipated Interventions Patient/Client Instruction: Educate patient on: Condition, Plan of Care For the Purpose of:: To improve self management Therapeutic Exercise to Include: Strength training, Endurance training, Flexibilty training, Passive ROM, Active ROM, Scapular Strength/Stabilization For the Purpose of:: To decrease pain, To increase ROM, To improve muscle performance and motor function Cryotherapy (ice pack, ice massage): Yes For the Purpose of:: To decrease pain Please do not hesitate to contact me at [phone] by phone or if you have questions or concerns regarding this new plan of care! Sincerely, Darin Bennett, PT, ATC
--- NOTE | 2020-06-11 08:09 | HP.PTREVAL_ITS ---
Dr. Sabrina Mcbride, DO, It has been my pleasure to treat MEG VILLAVICENCIO over the last 11 visits for R rot cuff repair with biceps tenodesis 03/17/20. Please see the progress note below for an update on the physical therapy plan of care! Subjective: No pain this date Objective/Function: Pt is now I with HEP Plan Plan: Follow up or discharge in one month Goals Goal 1:: Decrease R shoulder pain x 50% to aid with pt's tolerance to lye supine. Goal Time Frame: 4-6 Weeks Goal Progress: Goal Met Goal 2:: Increase R shoulder flex and abd AROM x 50 degrees to aid with overhead activity Goal Time Frame: 4-6 Weeks Goal Progress: Progressing Goal 3:: Increase R shoulder strength x 1 grade to aid with RTW without limitation Goal Time Frame: 4-6 Weeks Goal Progress: Progressing Goal 4:: I with HEP Goal Time Frame: 4-6 Weeks Goal Progress: Progressing Anticipated Interventions Patient/Client Instruction: Educate patient on: Condition, Plan of Care For the Purpose of:: To improve self management Therapeutic Exercise to Include: Strength training, Endurance training, Flexibilty training, Passive ROM, Active ROM, Scapular Strength/Stabilization For the Purpose of:: To decrease pain, To increase ROM, To improve muscle performance and motor function Cryotherapy (ice pack, ice massage): Yes For the Purpose of:: To decrease pain Please do not hesitate to contact me at [phone] by phone or Fax: if you have questions or concerns regarding this new plan of care! Sincerely, Darin Bennett, PT, ATC
--- NOTE | 2020-07-28 07:18 | HP.PTDCSUM ---
It has been my pleasure to treat MEG VILLAVICENCIO referred by Dr. Sabrina Mcbride DO, with the diagnosis of R rot cuff repair with biceps tenodesis 03/17/20 for a total of 12 visit(s). Discharge Date: Please see the following information for a summary of their discharge status. Subjective: I am good to go. 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 R shoulder Pain Intensity (Out of 10): 0 % Improvement: 80 Objective/Function: Pain is 0/10. R shoulder AROM: flex= 160, abd= 160, ER= 50, IR WNL. R shoulder MMT: R shoulder is 5/5 throughout with the exception of ER= 4/5. Pt is I with HEP. Rx goals achieved Goal 1:: Decrease R shoulder pain x 50% to aid with pt's tolerance to lye supine. Goal Progress: Goal Met Goal 2:: Increase R shoulder flex and abd AROM x 50 degrees to aid with overhead activity Goal Progress: Goal Met Goal 3:: Increase R shoulder strength x 1 grade to aid with RTW without limitation Goal Progress: Goal Met Goal 4:: I with HEP Goal Progress: Goal Met Plan: Discharge to HEP If there are questions or concerns regarding this patient's physical therapy, please feel free to call me at [phone]. Thank you for the referral of this patient. Sincerely, Darin Bennett, PT, ATC
== END 2020-07-28 10:41 | disposition home or self-care (01) ==
LOC: PT 07:00
PROVIDERS: Referring Provider Orthopaedic Surgery; Visit Provider Orthopaedic Surgery
DX: Z98.890 Other specified postprocedural states (principal)
CPT/HCPCS: 97110; 97140; 97161; 97164

== ENCOUNTER → 2020-12-02 12:15 | Outpatient (CLI) | payer MEDICAID, SELFPAY ==
--- NOTE | 2020-12-02 12:16 | MRI_ITS ---
STUDY: MRI RIGHT KNEE REASON FOR EXAM: Male, 49 years old. medial pain and popping TECHNIQUE: Standardized fat and water weighted pulse sequences were obtained in all 3 orthogonal planes. COMPARISON: None. FINDINGS: Small benign 1.72 cm intraosseous cyst is present in the distal one third femoral shaft. Mixed degenerative/horizontal tearing is present in the middle one third aspect of the posterior horn of medial meniscus. There is also irregularity and intrasubstance signal abnormality throughout the posterior horn of the medial meniscus. Normal anterior horn and body of the medial meniscus. There is diffuse, less than 50% thickness articular cartilage loss of the medial femorotibial compartment. Normal medial femoral condyle and tibial plateau. Normal medial collateral ligamentous complex (MCL). Normal distal semimembranosus, gracilis and semitendinosus tendons. Normal lateral meniscus. Normal hyaline cartilage of the lateral femorotibial compartment. Normal lateral femoral condyle and tibial plateau. Normal proximal tibiofibular articulation. Normal lateral collateral (fibular) ligament. Normal popliteus tendon. Normal biceps femoris tendon. Normal anterior cruciate ligament (ACL). Normal posterior cruciate ligament (PCL). Normal congruent patellofemoral articulation. Normal hyaline cartilage of the patellofemoral compartment. Normal medial and lateral patellar retinaculum. Normal quadriceps tendon. Normal patellar tendon. Normal Hoffa''s fat pad. There is a small volume joint effusion. Mild prepatellar subcutaneous edema is present with a small amount of fluid. No marrow edema or osteochondral defect is present. No occult fractures present. MRI/Lower Ext Joint Only (Routine) IMPRESSION: 1. Mixed degenerative/horizontal tearing is present in the middle one third aspect of the posterior horn of medial meniscus. There is also irregularity and intrasubstance signal abnormality throughout the posterior horn of the medial meniscus. 2. Mild prepatellar subcutaneous edema is present with a small amount of fluid. No marrow edema or osteochondral defect is present Electronically Signed: Clay Pineda MD at 17:33 EDT , Service support ,
== END ==
PROVIDERS: Referring Provider Orthopaedic Surgery; Visit Provider Orthopaedic Surgery
DX: S83.241A Other tear of medial meniscus, current injury, right knee, initial encounter (principal); X58.XXXA Exposure to other specified factors, initial encounter
CPT/HCPCS: 73721

== ENCOUNTER 2020-12-21 07:52 | Day surgery (SDC) | payer MEDICAID, SELFPAY ==
[2020-12-21] VITALS (7 sets, daily range): BP systolic 104–125; BP diastolic 72–83; PULSE 61–81; RESP 16; TEMP 36.3–36.8; O2SAT 93–100; BMI 21.1
--- NOTE | 2020-12-21 08:03 | PCM.HP.BLA ---
History and Physical Date of Admission: 12/21/20 Date of Service: 12/08/20 MR#:[id number]: MEG VILLAVICENCIO [facility] #:[id number]:[id number] Provider:Dr. Narinder Harry, Age/Sex: 49/M Location:[facility]:Signed Intake Intake Visit Reasons: RIGHT KNEE Allergies No Known Allergies Allergy (Verified 12/08/20 09:02) Medications NK 10/28/20 [History Confirmed 12/08/20] [facility] Surgical History History of arthroscopic knee surgery History of carpal tunnel release History of ear surgery History of hernia repair History of rhinoplasty Family History (Updated 01/22/18 @ 16:41 by Dina Betancourt) Aunt Myocardial infarction Grandmother Myocardial infarction Mother CVA (cerebral vascular accident) Sister Hypertension Father Cancer testicular Hypertension Hyperlipemia Social History (Updated 10/28/20 @ 09:25 by Vicky Kaiser) household members: children and other details: sister, and two nieces housing: house current occupational status: employed 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 Narinder Harry, DO 12/08/20 0813. MEG VILLAVICENCIO is a 49 year old M here today for his MRI review. Patient had a right knee MRI on: 12/02/20. Patient states since he was last seen, his knee has popped and which resulted in his knee giving out. Patient did not fall, he was able to catch himself. 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 Patient voiced he is self-employed. Ortho Exam General General: Yes no acute distress and Yes well groomed Neurologic: Yes alert and Yes oriented x3 Psychologic: Yes reasonable and appropriate Right Knee Date of injury: 08/15/20 KNEE: Right Knee Skin/Wound: Yes CDI, No erythema, No ecchymosis and No swelling Knee ROM: Yes ROM-Extension -20 to 0 and Yes ROM-Flexion 0-140 Examination: No Med jt line tenderness, Yes Lat jt line tenderness and Yes Juan Antonio's Test Stability: NML: Anterior Drawer (very painful, firm endpoint), NML: Posterior Drawer, NML: Valgus 30 and NML: Varus 30 and 1+: Almita Patella Translation: 1 Apprehension with Lateral Translation: No Patella Grind: Yes KNEE: healing from abrasion without sign of infection. significantly painful medial mcmurrays Supplemental Info 12/02/2020 MRI right knee: Mixed degenerative horizontal tearing is present in the middle one third of the posterior horn medial meniscus Coding Level of Care Code Off vis,est,level 3 Diagnoses Acute medial meniscus tear S83.241D Encounter type: subsequent encounter Laterality: right Assessment and Plan Assessment and Plan (1) Acute medial meniscus tear: Status: Acute Qualifiers: Encounter type: subsequent encounter Laterality: right Qualified Code(s): S83.241D - Other tear of medial meniscus, current injury, right knee, subsequent encounter Plan - Dr. Narinder Harry, DO: Personally reviewed the patient's medical history, medications, surgeries and recent exams if available. Advised patient he did tear his medial meniscus. With these type of horizontal tears, we would likely have to trim a piece of it out and he would be able to walk immediately after surgery. However if there is a repairable part of the tear that could be repaired I would recommend repairing it however this would entail 6 weeks of toe-touch weightbearing in 3 months of restrictions. Patient does not wish to proceed with this as an option he only wishes to proceed with partial medial meniscectomy. Advised the meniscus is there for a reason and he will statistically develop arthritis quicker. Patient voiced understanding, Discussed there would be two-3 small incisions, to keep his incisions clean. Patient will have sutures at follow up at two weeks post-op. Risks, benefits and alternatives of surgery reviewed including risk of bleeding, infection, nerve, artery and/or tissue damage continued pain or symptoms and expected post-operative course. All questions answered. Patient in agreement of plan. Follow up two weeks post-op or sooner if pain, swelling, numbness or associated symptoms, or concerns develop. 12/08/20 1005<Electronically signed by Narinder Harry DO>Date Narinder Harry DO Cosigner Signature:Date (if applicable) CC: ~I have re-examined the patient. There are no clinical changes since date of exam
[2020-12-21] MEDS: Lactated Ringers 1,000 ML 100 ML IV ×2 (08:37→10:41)
[2020-12-21] MEDS: Cefazolin 2 GM in 0.9% Normal Saline 100 ML IV (09:33)
[2020-12-21] MEDS: Lidocaine 1% /Epi 1:100 (20ml) 20 ML Vial (09:49)
[2020-12-21] MEDS: Epinephrine (1 mg/ml) 1 MG/ML VIAL (09:50)
[2020-12-21] MEDS: Bupivacaine Mpf 0.5% 30 ML VIAL (10:02)
[2020-12-21] MEDS: MethylPREDNISolone Acetate 40 MG/ML Vial IM (10:03)
--- NOTE | 2020-12-21 10:06 | OP.PCM_ITS ---
Report of Operation Date of Procedure: 12/21/20 Description of Surgical Findings:: Preop diagnosis: Right knee complex tear posterior horn and body medial meniscus Postoperative diagnosis: Same plus medial plica Procedure: Right knee arthroscopic partial medial meniscectomy excision of plica Anesthesia: General Estimated blood loss: 5 mL Tourniquet time: 20 minutes 300 mmHg Complications: none Indication for procedure: 49-year-old male was had mechanical knee symptoms with MRI evidence of medial meniscus tear. the patient did wish to proceed with an elective arthroscopic surgery to attempt to alleviate the symptoms. Risk benefits and alternatives of the procedure were reviewed including risk of bl eeding infection nerve artery tissue damage need for further surgery continued pain and expected postoperative course. Procedure: The patient was met in the preoperative holding area. The operative extremity was identified by both patient and physician and family and marked. Patient was brought back to the operating room on a wheeled cart and transferred to the operating table in the supine position. Anesthesia was started. A well- padded tourniquet was placed on the operative extremity. A lower extremity leg levy was secured to the operative extremity. The contralateral extremity was well-padded and the end of the bed was flexed to 90 degrees. The patient was prepped and draped in the usual sterile fashion. A timeout was called to ensure the proper patient, procedure, and extremity were being contemplated. 0.5% Marcaine with epinephrine was injected into the planned incisional areas under the skin only. An Esmarch was used to exsanguinate the extremity and the tourniquet was inflated. An 11 blade scalpel was used to make a stab incision in the anterior lateral portal. The arthroscope was inserted into the intercondylar notch and inflow and outflow tubes were attached. Arthroscopic visualization began. The medial compartment was entered. An 18-gauge spinal needle was used to establish the placement for anterior medial portal. An 11 blade scalpel was used to make a stab incision. Blunt probe was inserted followed by a meniscal probe. There was noted to be complex tearing of the body of the medial meniscus with use of arthroscopic biting instruments and a shaver partial medial meniscectomy was performed there was some grade 2 cartilage softening throughout the knee but no loose cartilage flaps the ACL was found to be intact. The lateral compartment was entered the lateral meniscus was intact The arthroscope was switched to the medial portal to complete the procedure. The medial and lateral gutters were inspected and were free of loose bodies. T he patellofemoral joint was inspected . There was good patellar tracking. There was a thickened medial plica which was excised with a shaver the knee was thoroughly irrigated and drained. An intra-articular injection with 5 cc 0.5% Marcaine plain and 40 mg of Depo-Medrol was injected intra-articularly. The arthroscope was removed the portals were closed with 3-0 nylon arthroscopic stitches. Followed by Xeroform 4 x 4's ABDs web roll and an Manuel wrap. The tourniquet was let down and the drapes were removed. All counts were correct. The patient was brought back to the PACU in stable condition.
--- NOTE | 2020-12-21 10:09 | EX.PCM.DISCH ---
Discharge Instructions Activity Weight Bearing Status: Weight bearing as tolerated Dressing / Incision Call your doctor if you observe: Shortness of breath and Chest pain Additional Dressing/Incision Instructions:: Ice and elevate next 72 hours .keep dressing on clean and dry for 48 hours then may remove begin showering daily but do not submerge in tub or pool. After shower may apply Band-Aids . Encourage knee range of motion weightbearing as tolerated, use crutches until confident in knee then may discontinue. No strenuous activity. When not ambulating keep iced and elevated next 72 hours. Do not mix pain medication with recreational drugs or alcohol only take as prescribed can be addictive and abusive, call with any questions or concerns. Follow Up Care Please Follow Up With: Narinder Harry DO When: 2 weeks Test Results: Test results from this visit will be discussed in further detail at your follow-up appointment, if applicable. Discharge Plan Admission Attending Provider: Narinder Harry Primary Care Provider: Jhonny Fisher,Sweetie Primary Discharge Orders/Prescriptions Prescriptions: New oxycodone 5 mg tablet 5 - 10 mg PO Q4H PRN (Reason: pain) 5 Days Qty: 30 RF: 0 Referrals / Follow Up: Care Physician,No Primary [Primary Care Provider] - Disposition Disposition (needs filled in before D/C Order can be placed): Home, Self Care
== END 2020-12-21 12:32 | disposition home or self-care (01) ==
LOC: SDC 07:54 → AC 07:54
PROVIDERS: Referring Provider Orthopaedic Surgery; Visit Provider Orthopaedic Surgery
PROC: (CPT 29870; principal; 2020-12-21 09:15)
DX: S83.231A Complex tear of medial meniscus, current injury, right knee, initial encounter (principal); X58.XXXA Exposure to other specified factors, initial encounter; M67.51 Plica syndrome, right knee; M19.90 Unspecified osteoarthritis, unspecified site; F17.210 Nicotine dependence, cigarettes, uncomplicated; Z20.822 Contact with and (suspected) exposure to COVID-19
CPT/HCPCS: 01400; 29881; 87426; C9803; J7120; J2405